=== PATIENT | male | born 1990 | race American Indian/Alaskan Native ===

== ENCOUNTER 2016-05-07 13:44 | Emergency (ER) | payer MEDICAID ==
[2016-05-07] MEDS ORDERED: TORADOL ONE (19:55)
[2016-05-07] MEDS ORDERED: TORADOL IM ONE (20:01)
--- NOTE | 2016-05-07 20:41 | Emergency Department Report ---
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 Patient reports that he has lower back pain that started yesterday after moving heavy furniture. Patient reports he has no relief with his tramadol and ibuprofen. ED Past Medical Hx - Past Medical History Previous Medical History?: Yes Additional medical history: Leukemia - Surgical History Past Surgical History?: Yes Additional Surgical History: Harvey hips replaced , Left shoulder replacement - Social History Smoking Status: Never Smoker Substance Use Type: Prescribed - Medications Home Medications: Home Medications Medication Instructions Recorded Confirmed Last Taken Type Naproxen [Naprosyn TAB] 500 mg PO BID #60 tablet 05/07/16 Unknown Rx methOCARBAMOL [Robaxin TAB] 500 mg PO BID #60 tab 05/07/16 Unknown Rx ED Review of Systems ROS: Stated complaint: LOWER BACK PAIN Other details as noted in HPI Musculoskeletal: back pain Physical Exam - Physical Exam Vital Signs: Vital Signs 05/07/16 14:05 Temperature 98 F Pulse Rate 105 H Respiratory 20 Rate Blood Pressure 136/83 O2 Sat by Pulse 100 Oximetry Physical Exam: GENERAL: Alert and oriented x3, no apparent distress, Normal Gait, atraumatic. HEAD: Head is normocephalic and a-traumatic. EYES: Extra ocular muscles are intact. Pupils are equal, round, and reactive to light and accommodation. MOUTH:Mouth is well hydrated and without lesions. Tonsils nonerythematous or swollen, Uvula midline, Tongue not elevated. Mucous membranes are moist. Posterior pharynx clear, no exudate or lesions. Patent airways. LUNGS: Symetrical with respiration, No wheezing, no rales or crackles, CTAB. HEART: S1, S2 present, regular rate and rhythm without murmur, no rubs, no gallops. EXTREMITIES/MUSCULOSKELETAL: No cyanosis, clubbing, rash, lesions or edema. Full ROM bilaterally. UE/LE Pulses 2+ bilaterally. LE and UE 5+ strength bilaterally paraspinal tenderness and midline tenderness to the lower back. NEUROLOGIC: No focal Deficit, Cranial nerves II through XII are grossly intact. No loss of sensation, No facial droop, Negative rhomberg. PSYCHIATRIC: Mood is congruent with affect, SKIN: Warm and dry, No lesions, No ulceration or induration present ED Course Vital Signs 05/07/16 14:05 Temperature 98 F Pulse Rate 105 H Respiratory 20 Rate Blood Pressure 136/83 O2 Sat by Pulse 100 Oximetry ED Medical Decision Making - Medical Decision Making He's been evaluated by this provider in fast track toward all shot was given patient reports minimal relief. Discussed with patient that his x-ray will was within normal limits. Discussed the patient we'll discharge him on Robaxin and naproxen. She verbalized understanding Critical care attestation.: If time is entered above; I have spent that time in minutes in the direct care of this critically ill patient, excluding procedure time. ED Disposition Clinical Impression: Back pain Qualifiers: Back pain location: low back pain Chronicity: acute Sciatica presence: without sciatica Clinical Impression: (Ruled Out): Baclofen overdose Disposition: DISCHARGED TO HOME OR SELFCARE Is pt being admited?: No Does the pt Need Aspirin: No Condition: Stable Instructions: Low Back Strain (ED), Core Strengthening Exercises (GEN) Additional Instructions: Take medication as prescribed follow the primary care provider. If pain gets worse follow to the emergency room. Prescriptions: methOCARBAMOL [Robaxin TAB] 500 mg PO BID #60 tab Naproxen [Naprosyn TAB] 500 mg PO BID #60 tablet Referrals: PRIMARY CARE, [Primary Care Provider] - 3-5 Days Forms: Work/School Release Form(ED)
[2016-05-07 21:09] VITALS: BP 128/78
--- NOTE | 2016-05-07 22:14 | XRay Report ---
FINAL REPORT EXAM: XR SPINE LUMBOSACRAL 2-3V HISTORY: h/x leukemia with back pain after moving COMPARISON: None available. FINDINGS: Three views of the lumbar spine obtained. Lumbar vertebral body heights and disc heights are preserved. Pedicles are intact. Partial visualization of bilateral hip replacements. No spondylolisthesis. IMPRESSION: Lumbar vertebral body heights and disc heights are preserved.
== END 2016-05-07 22:45 | disposition home or self-care (01) ==
LOC: ED 13:44
DX: M54.5 Low back pain (principal)
CPT/HCPCS: 72100; 96372; 99283; J1885

== ENCOUNTER 2016-07-01 00:10 | Emergency (ER) | payer MEDICAID ==
[2016-07-01 00:26] VITALS: BP 138/94
[2016-07-01 00:51] LABS: Hematocrit 44.8 % (35.5-45.6); Mean Corpuscular HGB Conc 34 % (32-34); Mean Corpuscular Hemoglobin 30 pg (28-32); Mean Corpuscular Volume 89 fl (84-94); Platelet Count 164 K/mm3 (140-440); Red Blood Count 5.07 M/mm3 (3.65-5.03); White Blood Count 4.5 K/mm3 (4.5-11.0)
[2016-07-01 01:05] LABS: Alanine Aminotransferase 21 units/L (7-56); Albumin 4.6 g/dL (3.9-5); Albumin/Globulin Ratio 1.9 %; Alkaline Phosphatase 67 units/L (35-129); Anion Gap 17 mmol/L; BUN/Creatinine Ratio 16.36; Blood Urea Nitrogen 18 mg/dL (9-20); Calcium 9.6 mg/dL (8.4-10.2); Carbon Dioxide 28 mmol/L (22-30); Chloride 99.6 mmol/L (98-107); Glucose 96 mg/dL (75-100); Potassium 4.3 mmol/L (3.6-5.0); Sodium 140 mmol/L (137-145)
[2016-07-01 04:07] LABS: Blastocytes % (Manual) 0 %; RBC Morphology Normal
[2016-07-01 04:08] LABS: Diff Status Complete; Platelet Estimate Consistent w Auto
--- NOTE | 2016-07-02 01:12 | ED Elopement Review ---
ED Pt Elopement review - Results review Lab results: Laboratory Tests 07/01/16 07/01/16 00:30 00:30 WBC 4.5 RBC 5.07 H Hgb 15.0 Hct 44.8 MCV 89 MCH 30 MCHC 34 RDW 12.0 L Plt Count 164 Add Manual Diff Complete Total Counted 100 Seg Neutrophils % Head Butler Seg Neuts % (Manual) 43.0 Band Neutrophils % 2.0 Lymphocytes % (Manual) 37.0 H Reactive Lymphs % (Man) 0 Monocytes % (Manual) 7.0 Eosinophils % (Manual) 9.0 H Basophils % (Manual) 2.0 H Metamyelocytes % 0 Myelocytes % 0 Promyelocytes % 0 Blast Cells % 0 Nucleated RBC % Not Reportable Seg Neutrophils # Man 1.9 Band Neutrophils # 0.1 Lymphocytes # (Manual) 1.7 Abs React Lymphs (Man) 0.0 Monocytes # (Manual) 0.3 Eosinophils # (Manual) 0.4 Basophils # (Manual) 0.1 Metamyelocytes # 0.0 Myelocytes # 0.0 Promyelocytes # 0.0 Blast Cells # 0.0 WBC Morphology Not Reportable Hypersegmented Neuts Not Reportable Hyposegmented Neuts Not Reportable Hypogranular Neuts Not Reportable Smudge Cells Not Reportable Toxic Granulation Not Reportable Toxic Vacuolation Not Reportable Dohle Bodies Not Reportable Pelger-Huet Anomaly Not Reportable Tamiko Rods Not Reportable Platelet Estimate Consistent w auto Clumped Platelets Not Reportable Plt Clumps, EDTA Not Reportable Large Platelets Not Reportable Giant Platelets Not Reportable Platelet Satelliting Not Reportable Plt Morphology Comment Not Reportable RBC Morphology Normal Dimorphic RBCs Not Reportable Polychromasia Not Reportable Hypochromasia Not Reportable Poikilocytosis Not Reportable Anisocytosis Not Reportable Microcytosis Not Reportable Macrocytosis Not Reportable Spherocytes Not Reportable Pappenheimer Bodies Not Reportable Sickle Cells Not Reportable Target Cells Not Reportable Tear Drop Cells Not Reportable Ovalocytes Not Reportable Helmet Cells Not Reportable Newell-St. Joseph Bodies Not Reportable Mccomb Rings Not Reportable Bakari Cells Not Reportable Bite Cells Not Reportable Crenated Cell Not Reportable Elliptocytes Not Reportable Acanthocytes (Spur) Not Reportable Rouleaux Not Reportable Hemoglobin C Crystals Not Reportable Schistocytes Not Reportable Malaria parasites Not Reportable Agapito Bodies Not Reportable Hem Pathologist Commnt No Sodium 140 Potassium 4.3 Chloride 99.6 Carbon Dioxide 28 Anion Gap 17 BUN 18 Creatinine 1.1 Estimated GFR > 60 BUN/Creatinine Ratio 16.36 Glucose 96 Calcium 9.6 Total Bilirubin 0.30 AST 27 ALT 21 Alkaline Phosphatase 67 Total Protein 7.0 Albumin 4.6 Albumin/Globulin Ratio 1.9 initial hr 122 on triage but subsequent EKG shows hr of 93 - Call Back decision Pt Call Back Decision: No action required
== END 2016-07-01 04:45 | disposition left against medical advice (07) ==
LOC: ED 00:10
DX: C94.80 Other specified leukemias not having achieved remission (principal); Z53.21 Procedure and treatment not carried out due to patient leaving prior to being seen by health care provider
CPT/HCPCS: 36415; 80053; 85007; 85025; 93005; 93010

== ENCOUNTER 2017-04-09 16:21 | Emergency (ER) | payer MEDICAID ==
[2017-04-09 16:37] VITALS: BP 144/87
[2017-04-09] MEDS ORDERED: MOTRIN PO ONE (21:01)
--- NOTE | 2017-04-09 21:20 | XRay Report ---
FINAL REPORT PROCEDURE: XR KNEE 3V LT TECHNIQUE: LEFT knee radiographs, AP, lateral and sunrise views. CPT 08456 HISTORY: left knee pain with hx of leukemia COMPARISON: No prior studies are available for comparison. FINDINGS: Fracture (s) and/or Dislocation(s): None . Alignment: Normal . Joint space(s): Mild degree joint effusion is noted. Soft tissues: Normal . Bone mineralization: Normal . Foreign bodies: None . IMPRESSION: No acute fracture. Mild degree joint effusion.
--- NOTE | 2017-04-09 22:06 | Emergency Department Report ---
ED Lower Extremity HPI - General Chief Complaint: Extremity Injury, Lower Stated Complaint: LEFT KNEE PAIN Time Seen by Provider: 04/09/17 21:00 Source: patient Mode of arrival: Ambulatory Limitations: No Limitations - History of Present Illness Initial Comments: This is a 26-year-old male nontoxic, well nourished in appearance, no acute signs of distress presents to the ED with c/o of left knee pain and swelling 4 days. Patient denies any trauma to the region but stated that he woke up and felt a popping sensation. Patient denies any numbness, tingling, joint redness , fever, chills, nausea, vomiting, headache or stiff neck. Patient denies any chest pain shortness of breath. She denies any drug allergies. Medical history includes leukemia. MD Complaint: knee injury -: days(s) (4) Injury: Knee: Left Place: home Severity: mild Severity scale (0 -10): 8 Improves With: immobilization Worsens With: weight bearing Associated Symptoms: snap/pop sensation, swelling, able to partially bear weight , ambulatory. denies: numbness, tingling, unable to bear weight - Related Data Previous Rx's Medication Instructions Recorded Last Taken Type Naproxen [Naprosyn TAB] 500 mg PO BID #60 tablet 05/07/16 Unknown Rx methOCARBAMOL [Robaxin TAB] 500 mg PO BID #60 tab 05/07/16 Unknown Rx Ibuprofen [Motrin] 600 mg PO Q8H PRN #30 tablet 04/09/17 Unknown Rx predniSONE [Deltasone] 40 mg PO QDAY #5 tab 04/09/17 Unknown Rx traMADol [Ultram] 50 mg PO Q6HR PRN #12 tablet 04/09/17 Unknown Rx Allergies Allergy/AdvReac Type Severity Reaction Status Date / Time No Known Allergies Allergy Verified 05/07/16 20:12 ED Review of Systems ROS: Stated complaint: LEFT KNEE PAIN Other details as noted in HPI Constitutional: denies: chills, fever Eyes: denies: eye pain, eye discharge, vision change ENT: denies: ear pain, throat pain Respiratory: denies: cough, shortness of breath, wheezing Cardiovascular: denies: chest pain, palpitations Endocrine: no symptoms reported Gastrointestinal: denies: abdominal pain, nausea, diarrhea Genitourinary: denies: urgency, dysuria Musculoskeletal: joint swelling, arthralgia. denies: back pain Skin: denies: rash, lesions Neurological: denies: headache, weakness, paresthesias Psychiatric: denies: anxiety, depression Hematological/Lymphatic: denies: easy bleeding, easy bruising ED Past Medical Hx - Past Medical History Previous Medical History?: Yes Additional medical history: Leukemia - Surgical History Past Surgical History?: Yes Additional Surgical History: Harvey hips replaced , Left shoulder replacement - Social History Smoking Status: Never Smoker Substance Use Type: Non Opiate Pain - Medications Home Medications: Home Medications Medication Instructions Recorded Confirmed Last Taken Type Naproxen [Naprosyn TAB] 500 mg PO BID #60 tablet 05/07/16 Unknown Rx methOCARBAMOL [Robaxin TAB] 500 mg PO BID #60 tab 05/07/16 Unknown Rx Ibuprofen [Motrin] 600 mg PO Q8H PRN #30 tablet 04/09/17 Unknown Rx predniSONE [Deltasone] 40 mg PO QDAY #5 tab 04/09/17 Unknown Rx traMADol [Ultram] 50 mg PO Q6HR PRN #12 tablet 04/09/17 Unknown Rx ED Physical Exam - General Limitations: No Limitations General appearance: alert, in no apparent distress - Head Head exam: Present: atraumatic, normocephalic - Eye Eye exam: Present: normal appearance - ENT ENT exam: Present: mucous membranes moist - Neck Neck exam: Present: normal inspection - Respiratory Respiratory exam: Present: normal lung sounds bilaterally. Absent: respiratory distress, wheezes, rales, rhonchi, stridor, chest wall tenderness, accessory muscle use, decreased breath sounds, prolonged expiratory - Cardiovascular Cardiovascular Exam: Present: regular rate, normal rhythm, normal heart sounds. Absent: irregular rhythm, systolic murmur, diastolic murmur, rubs, gallop - GI/Abdominal GI/Abdominal exam: Present: soft, normal bowel sounds. Absent: distended, tenderness, guarding, rebound, rigid, diminished bowel sounds - Rectal Rectal exam: Present: deferred - Extremities Exam Extremities exam: Present: normal inspection, full ROM, tenderness, normal capillary refill. Absent: pedal edema, joint swelling, calf tenderness - Expanded Lower Extremity Exam Left Hip exam: Present: normal inspection, full ROM Upper Leg exam: Present: normal inspection, full ROM Knee exam: Present: normal inspection, full ROM, tenderness, swelling, effusion , full knee extension. Absent: abrasion, laceration, ecchymosis, deformity, crepidus, dislocation, erythema, pain w/ pronation/supination, posterior draw sign, pain/laxity with valgus, pain/laxity with varus Lower Leg exam: Present: normal inspection, full ROM. Absent: tenderness, swelling, abrasion, laceration, ecchymosis, deformity, crepidus, dislocation, erythema, palpable cord, Nas's sign Ankle exam: Present: normal inspection, full ROM Foot/Toe exam: Present: normal inspection, full ROM Neuro vascular tendon exam: Present: no vascular compromise. Absent: pulse deficit, abnormal cap refill, motor deficit, sensory deficit, tendon deficit, extremity cold to touch, pallor, abnormal 2-point discrimination, decreased fine /light touch, foot drop, peroneal nerve deficit, significant pain with passive ROM of distal joint Gait: Positive: observed and limited by pain - Back Exam Back exam: Present: normal inspection, full ROM. Absent: tenderness, CVA tenderness (R), CVA tenderness (L), muscle spasm, paraspinal tenderness, vertebral tenderness, rash noted - Neurological Exam Neurological exam: Present: alert, oriented X3, CN II-XII intact, normal gait, reflexes normal - Psychiatric Psychiatric exam: Present: normal affect, normal mood - Skin Skin exam: Present: warm, dry, intact, normal color. Absent: rash ED Course Vital Signs 04/09/17 16:33 Temperature 99 F Pulse Rate 95 H Respiratory 18 Rate Blood Pressure 144/87 O2 Sat by Pulse 99 Oximetry - Reevaluation(s) Reevaluation #1: 04/09/17 22:04 Patient is speaking in full sentences with no signs of distress noted. ED Lower Extremity MDM - Medical Decision Making This is a 26-year-old male that presents with left knee strain. Patient is stable and was examined by me. Xray has been obtained and dictated by radiologist with no fractures or dislocation but minimal effusion. Patient was notified of xrays results with no questions noted. Patient does have normal ROM with pain. No joint redness or signs of cellulitis. Patient received ice and motrin and solu-medrol in the ED. Patient received a knee immobilizer and crutches and was educated how to use crutches by RN. Patient was instructed to rice therapy. Patient was referred and was instructed to Follow-up with a orthopedic doctor in 24 hours or if symptoms worsen and continue return to emergency room as soon as possible. At time of discharge, the patient does not seem toxic or ill in appearance. No acute signs of distress noted. Patient agrees to discharge treatment plan of care. No further questions noted by the patient. Critical care attestation.: If time is entered above; I have spent that time in minutes in the direct care of this critically ill patient, excluding procedure time. ED Disposition Clinical Impression: Strain of left knee Qualifiers: Encounter type: initial encounter Qualified Code(s): S86.912A - Strain of unspecified muscle(s) and tendon(s) at lower leg level, left leg, initial encounter Disposition: TO HOME OR SELFCARE Is pt being admited?: No Does the pt Need Aspirin: No Condition: Stable Instructions: Knee Pain (ED), Knee Immobilizer (ED), RICE Therapy (ED), Crutch Instructions (ED), Tramadol (By mouth), Ibuprofen (By mouth), Prednisone (By mouth) Additional Instructions: Follow-up with a orthopedic doctor in 24 hours or if symptoms worsen and continue return to emergency room as soon as possible. . Do not operate any machinery while taking Ultram due to drowsiness. Prescriptions: Ibuprofen [Motrin] 600 mg PO Q8H PRN #30 tablet PRN Reason: Pain predniSONE [Deltasone] 40 mg PO QDAY #5 tab traMADol [Ultram] 50 mg PO Q6HR PRN #12 tablet PRN Reason: Pain Referrals: PRIMARY MD JOSE [Primary Care Provider] - 3-5 Days [facility] [Outside] - 3-5 Days DANIEL PEARSON MD [Staff Physician] - 24 Hours Forms: Work/School Release Form(ED)
== END 2017-04-09 22:54 | disposition home or self-care (01) ==
LOC: ED 16:21
DX: S86.812A Strain of other muscle(s) and tendon(s) at lower leg level, left leg, initial encounter (principal); X58.XXXA Exposure to other specified factors, initial encounter; Y93.89 Activity, other specified; Y92.89 Other specified places as the place of occurrence of the external cause; Y99.8 Other external cause status
CPT/HCPCS: 29505; 73562; 96372; 99284; J2930